=== PATIENT | female | born 1980 | race Two or more races ===

== ENCOUNTER 2016-06-11 19:12 | Emergency (ER) | payer MEDICAID, OTHER ==
[~2016-06-11] VITALS: Ht 165.1 cm; Wt 49.1 kg
[2016-06-11 19:20] VITALS: BP 129/74
== END 2016-06-11 23:27 | disposition left against medical advice (07) ==
LOC: ER 19:12
DX: R30.0 Dysuria (principal); R30.9 Painful micturition, unspecified; Z53.21 Procedure and treatment not carried out due to patient leaving prior to being seen by health care provider